=== PATIENT | female | born 1970 | race Caucasian/White ===

== ENCOUNTER 2017-03-31 22:18 | Emergency (ER) | payer OTHER ==
[~2017-03-31] VITALS: Ht 167.6 cm; Wt 103.9 kg
[~2017-03-31 22:18] MED LIST: ACET500 PO; GABA300 PO; HYDR1TAB94 PO; META800 PO; Mobic15 MG PO; TRAM50 PO
[2017-03-31] MEDS ORDERED: Prednisone20 MG PO (23:17)
== END 2017-04-01 00:27 | disposition home or self-care (01) ==
LOC: ER 22:18
DX: G89.29 Other chronic pain (principal); M54.2 Cervicalgia; Z79.899 Other long term (current) drug therapy; Z79.891 Long term (current) use of opiate analgesic; I10 Essential (primary) hypertension
CPT/HCPCS: 96372; 99283; J1170; J1885